=== PATIENT | male | born 1970 | race Caucasian/White ===

== ENCOUNTER → 2020-02-06 14:54 | Outpatient (BNVA) | payer BC, SELFPAY | PROVIDERS: Family Provider Family Medicine; PCP Family Medicine; Referring Provider Dermatology; Visit Provider Dermatology | DX: D48.9 Neoplasm of uncertain behavior, unspecified (principal); L57.8 Other skin changes due to chronic exposure to nonionizing radiation; L70.0 Acne vulgaris; F17.210 Nicotine dependence, cigarettes, uncomplicated | CPT/HCPCS: 11422; 12041; 88305; 99203; 99204 ==

== ENCOUNTER → 2020-02-07 14:23 | Outpatient (BNVA) | payer BC, SELFPAY | PROVIDERS: Family Provider Family Medicine; PCP Family Medicine; Visit Provider Dermatology | DX: D48.9 Neoplasm of uncertain behavior, unspecified (principal) | CPT/HCPCS: 88304 ==

== ENCOUNTER → 2020-02-21 08:47 | Outpatient (BNVA) | payer BC, SELFPAY | PROVIDERS: Family Provider Family Medicine; PCP Family Medicine; Visit Provider Dermatology | DX: Z48.02 Encounter for removal of sutures (principal); F17.210 Nicotine dependence, cigarettes, uncomplicated | CPT/HCPCS: 99024 ==

== ENCOUNTER → 2020-04-23 16:11 | Outpatient (BNVA) | payer BC, SELFPAY | PROVIDERS: Family Provider Family Medicine; PCP Family Medicine; Visit Provider Nurse Practitioner Family | DX: Z11.59 Encounter for screening for other viral diseases (principal); Z20.828 Contact with and (suspected) exposure to other viral communicable diseases | CPT/HCPCS: 87635 ==